=== PATIENT | female | born 1955 | race Caucasian/White ===

== ENCOUNTER 2016-12-12 10:12 | Emergency (ER) | payer SELFPAY ==
[~2016-12-12] VITALS: Ht 167.6 cm; Wt 81.0 kg
[~2016-12-12 10:12] MED LIST: NAPROSYN500 MG PO; ZPAK PO
[2016-12-12] MEDS ORDERED: CIMETIDINE400 M1 PO (10:29)
[2016-12-12] MEDS ORDERED: BENADRYL 50MG C50 MG PO (10:29)
[2016-12-12] MEDS ORDERED: PREDNISONE10 MG PO (10:29)
[2016-12-12 10:36] VITALS: BP 154/81
== END 2016-12-12 10:48 | disposition home or self-care (01) | DRG 607 ==
LOC: ED 10:12
DX: R21 Rash and other nonspecific skin eruption (principal); E11.9 Type 2 diabetes mellitus without complications

== ENCOUNTER 2017-03-30 19:46 | Emergency (ER) | payer OTHER ==
[~2017-03-30] VITALS: Ht 167.6 cm; Wt 85.4 kg
[~2017-03-30 19:46] MED LIST changes: +BENADRYL 50MG C50 MG PO; +CIMETIDINE400 M1 PO; +PREDNISONE10 MG PO
[2017-03-30 20:53] LABS: HEMATOCRIT 35.6 % (37.0-47.0); HEMOGLOBIN 12.4 g/dl (12.0-16.0); IMMATURE GRANULOCYTES 0.1 % (0.0-1.0); MEAN CELL VOLUME 93.9 fL CALC (80.0-100.0); MEAN CORPUSCULAR HGB 32.7 pG CALC (26.0-32.0); MEAN CORPUSCULAR HGB CONC 34.8 g/L CALC (32.0-36.0); NEUT# 4.79 thou/uL (2.00-7.15); RED BLOOD COUNT 3.79 mill/uL (4.20-5.60); RED CELL DISTRI WIDTH 11.4 % (11.5-15.5)
[2017-03-30 21:03] LABS: ALBUMIN 4.1 g/dL (3.2-5.0); ALKALINE PHOSPHATASE 88 u/l (38-126); ANION GAP 15 (6-22 (CALC)); BILIRUBIN, TOTAL 0.5 mg/dL (0.0-1.4); BUN 31 mg/dL (8-23); BUN/CREATININE RATIO 28 (12-20 (CALC)); CALCIUM 9.5 mg/dL (8.4-10.2); CARBON DIOXIDE 27 mmol/l (22-30); CHLORIDE 95 mmol/l (95-108); CREATININE 1.1 mg/dL (0.5-1.0); GFR 50 ML/MIN (>=60 (CALC)); GFR FOR AFR.AMER. > 60 ML/MIN (>=60 (CALC)); POTASSIUM 4.8 mmol/l (3.5-5.1); SGOT/AST 23 u/l (9-36); SGPT/ALT 36 u/l (11-66); SODIUM 132 mmol/l (137-146); TOTAL PROTEIN 7.2 g/dL (6.3-8.2)
[2017-03-30 21:06] LABS: GLUCOSE 571 mg/dL (82-115)
[2017-03-30] MEDS ORDERED: LORTAB 10-325 M1 TAB PO (23:25)
[2017-03-30] MEDS ORDERED: FLEXERIL PO (23:25)
[2017-03-30 23:40] VITALS: BP 132/74
== END 2017-03-30 23:40 | disposition home or self-care (01) | DRG 563 ==
LOC: ED 19:46
PROVIDERS: Emergency Medicine
DX: S39.012A Strain of muscle, fascia and tendon of lower back, initial encounter (principal); E11.9 Type 2 diabetes mellitus without complications; M47.816 Spondylosis without myelopathy or radiculopathy, lumbar region; X58.XXXA Exposure to other specified factors, initial encounter

== ENCOUNTER 2017-06-10 16:26 | Observation (INO) | payer OTHER ==
[~2017-06-10] VITALS: Ht 167.6 cm; Wt 87.0 kg
[~2017-06-10 16:26] MED LIST changes: +FLEXERIL PO; +LORTAB 10-325 M1 TAB PO
--- NOTE | 2017-06-10 16:39 | NUR ---
PT WHEELED HERSELF STRAIGHT BACK TO ER ROOM 14 IN HER POWER CHAIR THAT SHE USES FOR DIABETIC NEUROPATHY. PT STATES SHE HASNT BEEN TAKING HER DIABETIC MEDS x2 YEARS BC SHE DIDNT HAVE INSURANCE. WENT FOR A ROUTINE PHYSICAL TODAY AND THEY SENT HER HERE AFTER SHE SAID SHE'S HAD A LONG HX OF CHEST PAIN. DENIES SOB
[2017-06-10 16:58] LABS: HEMATOCRIT 33.1 % (37.0-47.0); HEMOGLOBIN 11.5 g/dl (12.0-16.0); IMMATURE GRANULOCYTES 0.1 % (0.0-1.0); MEAN CELL VOLUME 94.6 fL CALC (80.0-100.0); MEAN CORPUSCULAR HGB 32.9 pG CALC (26.0-32.0); MEAN CORPUSCULAR HGB CONC 34.7 g/L CALC (32.0-36.0); NEUT# 3.68 thou/uL (2.00-7.15); RED BLOOD COUNT 3.5 mill/uL (4.20-5.60); RED CELL DISTRI WIDTH 12.1 % (11.5-15.5)
[2017-06-10 17:11] LABS: ALKALINE PHOSPHATASE 115 u/l (38-126); AMYLASE 46 u/l (30-110); ANION GAP 14 (6-22 (CALC)); BILIRUBIN, TOTAL 0.7 mg/dL (0.0-1.4); BUN 29 mg/dL (8-23); BUN/CREATININE RATIO 34 (12-20 (CALC)); CALCIUM 9.5 mg/dL (8.4-10.2); CARBON DIOXIDE 26 mmol/l (22-30); CHLORIDE 102 mmol/l (95-108); CREATININE 0.9 mg/dL (0.5-1.0); GFR > 60 ML/MIN (>=60 (CALC)); GFR FOR AFR.AMER. > 60 ML/MIN (>=60 (CALC)); GLUCOSE 375 mg/dL (82-115); LIPASE 122 u/l (23-300); POTASSIUM 4.4 mmol/l (3.5-5.1); SGOT/AST 37 u/l (9-36); SGPT/ALT 39 u/l (11-66); SODIUM 138 mmol/l (137-146); TOTAL PROTEIN 7.3 g/dL (6.3-8.2)
[2017-06-10 17:25] LABS: MYOGLOBIN 26 ng/mL (0 - 62)
--- NOTE | 2017-06-10 17:38 | NUR ---
PT ARGUMENTATIVE WITH STAFF. DENIES CP AT THIS TIME. DENIES SOB. DENIES N/V/D. DENIES COUGH. PTS POWER WC PLUGGED INTO WALL. SISTER @ BEDSIDE.
--- NOTE | 2017-06-10 17:57 | NUR ---
SBAR PRINTED TO FLOOR
--- NOTE | 2017-06-10 18:17 | NUR ---
NITRO PASTE PLACED ON PTS RIGHT CHEST. PT STATES HER SUGAR "WAS LOW; ITS USUALLY AROUND 400" BUT DOESNT KNOW WHEN THE LAST TIME WAS THAT SHE CHECKED IT. PT EDUCATED ABOUT MEDS GIVEN.
--- NOTE | 2017-06-10 18:35 | NUR ---
PT GIVEN A SANDWICH & JUICE AFTER INSULIN.
--- NOTE | 2017-06-10 18:40 | NUR ---
WAITING ON ADMITTING NURSE TO CALL BACK FOR REPORT.
--- NOTE | 2017-06-10 19:08 | NUR ---
Admission Note Report Given to: SUNDAR Transported by: Wheelchair X Stretcher Transported with: X Nurse Transporter X Patent IV O2 X Engineer Assistant
[2017-06-10 19:20] VITALS: BP 176/88
--- NOTE | 2017-06-10 19:27 | NUR ---
PT DROVE SELF IN POWERED WC UP TO MSU 273 IN STABLE CONDITION. RN @ BEDSIDE.
--- NOTE | 2017-06-10 20:00 | NUR ---
I RECEIVED PATIENT FROM ER, A+O*3 NO PRESENT CHEST PAIN AT THE MOMENT, LUNGS CLEAR AT ROOM AIR, NO PRESENT ABD PAIN AT THE MOMENT AND SOFT, NO PRESENT EDEMA IN BOTH ARM AND LEG, THE IV NO PRESENT EDEMA AND FREE REDNESS AREA.
[2017-06-10 23:19] LABS: URINE BILIRUBIN - DIPSTICK NEGATIVE (NEGATIVE); URINE BLOOD DIPSTICK SMALL (NEGATIVE); URINE COLOR YELLOW; URINE GLUCOSE - DIPSTICK >=1000 mg/dL (NEGATIVE); URINE KETONE NEGATIVE (NEGATIVE); URINE LEUK ESTERASE NEGATIVE (NEGATIVE); URINE NITRITE - DIPSTICK NEGATIVE (Negative); URINE PH 5.5 (4.5-8.0); URINE PROTEIN - DIPSTICK 100 mg/dL (NEG-TRACE); URINE SPECIFIC GRAVITY 1.025; URINE UROBILINOGEN - DIPSTICK 0.2 E.U./dL (0.2)
[2017-06-10 23:20] LABS: URINE CLARITY SLIGHT CLOUDY
[2017-06-10 23:37] VITALS: BP 121/72
--- NOTE | 2017-06-11 | NUR ---
PATIENT CONTINUE IN BED, NO PRESENT CHEST PAIN AT THE MOMENT AND CONTINUE IN OBSERVATION.
[2017-06-11 00:01] LABS: URINE BACTERIA FEW hpf; URINE HYALINE CAST FEW lpf (NONE-RARE); URINE RBC 0-2 RBC/hpf (0-5); URINE SQUAMOUS EPITHELIAL CELL MODERATE EPI/hpf (0-FEW); URINE WBC 0-2 WBC/hpf (0-5)
--- NOTE | 2017-06-11 04:00 | NUR ---
PATIENT CONTINUE SLEEPING AND NO PRESENT CHEST PAIN AT THE MOMENT.
[2017-06-11 04:08] VITALS: BP 171/82
[2017-06-11 06:35] LABS: HEMATOCRIT 31.5 % (37.0-47.0); MEAN CELL VOLUME 95.7 fL CALC (80.0-100.0); MEAN CORPUSCULAR HGB 33.4 pG CALC (26.0-32.0); MEAN CORPUSCULAR HGB CONC 34.9 g/L CALC (32.0-36.0); RED BLOOD COUNT 3.29 mill/uL (4.20-5.60); RED CELL DISTRI WIDTH 12.1 % (11.5-15.5)
[2017-06-11 06:47] LABS: ANION GAP 14 (6-22 (CALC)); BUN 27 mg/dL (8-23); BUN/CREATININE RATIO 34 (12-20 (CALC)); CALCULATED LDLCHOLESTEROL 179 mg/dL (62-129 (CALC)); CARBON DIOXIDE 28 mmol/l (22-30); CHLORIDE 101 mmol/l (95-108); CHOLESTEROL HDL RATIO 4.3 (<4.4 (CALC)); CREATININE 0.8 mg/dL (0.5-1.0); GFR > 60 ML/MIN (>=60 (CALC)); GFR FOR AFR.AMER. > 60 ML/MIN (>=60 (CALC)); GLUCOSE 320 mg/dL (82-115); HDL CHOLESTEROL 65 mg/dL (>=40); POTASSIUM 4.7 mmol/l (3.5-5.1); SODIUM 138 mmol/l (137-146); TOTAL CHOLESTEROL 282 mg/dl (0-199); TOTAL TRIGLYCERIDES 190 mg/dl (30-149); VLDL CHOLESTROL 38 mg/dl (1-41 (CALC))
--- NOTE | 2017-06-11 07:30 | NUR ---
BEDSIDE REPORT RECIEVED FROM DAY SHIFT. PT RESTING IN BED WITH EYES CLOSED AND AWAKEN SPONTANEOUSLY. PT ALERT AND ORIENTED, DENIES PAIN CURRENTLY. RESP EVEN AND UNLABORED ON RA. BLOOD PRESSURE DECREASED FROM LAST DOCUMENTED VS. PLAN OF CARE DISCUSSED, PT ENCOURAGED TO VERBALIZE CONCERNS. STATES UNDERSTANDING, SAFETY MEASUES IN PLACE. CALL LIGHT SYSTEM REVIEWED AND IN REACH.
[2017-06-11 07:31] VITALS: BP 152/84
[2017-06-11 11:37] VITALS: BP 172/73
[2017-06-11 11:42] VITALS: BP 172/94
[2017-06-11 11:51] VITALS: BP 182/82
--- NOTE | 2017-06-11 11:51 | NUR ---
BLOOD SUGAR AT 1100 WAS 439. NOTIFIED DECLINED INSULIN. NEW ORDERS FOR ORAL HYPOGLYCEMICS. BP ALSO ELEVATED AT THIS TIME, RN WILL GIVE BP PRN MEDS AND REASSES.
--- NOTE | 2017-06-11 11:53 | NUR ---
HYDRALIZINE IV GIVEN AT THIS TIME. BP IS 182/82. PT GIVEN EDUCATION ON BLOOD PRESSURE MEDICATION AND SIDE EFFECTS. PT EXPLAINED OF ADDITIONAL LISINOPRIL TO BE GIVEN APPROX. 1 HOUR AFTER ADMINISTRATION. PT STATES UNDERSTANDING. ALSO, PT GIVEN INSTRUCTIONS IN REGARDS POSSIBLE SIDE EFFECTS OF FEELING DROWSY, DIZZY, OR LIGHTHEADED. PT INSTRUCTED TO USE CALL LIGHT FOR ASSISTANCE. PT VERBALIZES UNDERSTANDING.
[2017-06-11 12:25] VITALS: BP 124/66
[2017-06-11] MEDS ORDERED: ASPIRIN ADULT L81 M2 PO (13:14)
[2017-06-11] MEDS ORDERED: AMLODIPINE BESYL5 MG PO (13:14)
[2017-06-11] MEDS ORDERED: GLUCOTROL5 MG PO (13:14)
[2017-06-11] MEDS ORDERED: LIPITOR20 M1 PO (13:14)
[2017-06-11] MEDS ORDERED: JANUVIA100 MG PO (13:14)
[2017-06-11] MEDS ORDERED: LISINOPRIL20 M1 PO (13:14)
--- NOTE | 2017-06-11 14:17 | NUR ---
Discharge instructions given. Patient verbalizes understanding of same. Discharged in stable condition via Wheelchair to Home with family. All belongings sent with pt.
== END 2017-06-11 14:13 | disposition home or self-care (01) | DRG 313 ==
LOC: ED 16:26 → ED-I 17:47 → ED 18:01 → MS2 18:02
PROVIDERS: Emergency Medicine; Internal Medicine; ADMIT Internal Medicine; ATTEND Internal Medicine
DX: R07.89 Other chest pain (principal); E11.40 Type 2 diabetes mellitus with diabetic neuropathy, unspecified; F20.0 Paranoid schizophrenia; I16.0 Hypertensive urgency; I10 Essential (primary) hypertension; E11.65 Type 2 diabetes mellitus with hyperglycemia; E78.5 Hyperlipidemia, unspecified; Z91.14 Patient's other noncompliance with medication regimen
CPT/HCPCS: G0378; J1650

== ENCOUNTER 2017-09-10 15:32 | Emergency (ER) | payer OTHER ==
[~2017-09-10] VITALS: Ht 167.6 cm; Wt 91.4 kg
[~2017-09-10 15:32] MED LIST changes: +AMLODIPINE BESYL5 MG PO; +ASPIRIN ADULT L81 M2 PO; +GLUCOTROL5 MG PO; +JANUVIA100 MG PO; +LIPITOR20 M1 PO; +LISINOPRIL20 M1 PO
[2017-09-10] MEDS ORDERED: INVOKANA100 MG PO (17:14)
[2017-09-10 19:23] LABS: HEMATOCRIT 34.3 % (37.0-47.0); HEMOGLOBIN 11.4 g/dl (12.0-16.0); IMMATURE GRANULOCYTES 0.3 % (0.0-1.0); MEAN CELL VOLUME 98.3 fL CALC (80.0-100.0); MEAN CORPUSCULAR HGB 32.7 pG CALC (26.0-32.0); MEAN CORPUSCULAR HGB CONC 33.2 g/L CALC (32.0-36.0); NEUT# 4.1 thou/uL (2.00-7.15); RED BLOOD COUNT 3.49 mill/uL (4.20-5.60); RED CELL DISTRI WIDTH 11.9 % (11.5-15.5)
[2017-09-10 19:24] LABS: URINE BILIRUBIN - DIPSTICK NEGATIVE (NEGATIVE); URINE BLOOD DIPSTICK NEGATIVE (NEGATIVE); URINE COLOR YELLOW; URINE GLUCOSE - DIPSTICK >=1000 mg/dL (NEGATIVE); URINE KETONE NEGATIVE (NEGATIVE); URINE LEUK ESTERASE NEGATIVE (NEGATIVE); URINE NITRITE - DIPSTICK NEGATIVE (Negative); URINE PROTEIN - DIPSTICK 30 mg/dL (NEG-TRACE); URINE SPECIFIC GRAVITY 1.025; URINE UROBILINOGEN - DIPSTICK 0.2 E.U./dL (0.2)
[2017-09-10 19:26] LABS: BARBITURATES NEGATIVE (NEGATIVE); COCAINE NEGATIVE (NEGATIVE); METHADONE NEGATIVE (NEGATIVE); OXCYCODONE NEGATIVE (NEGATIVE); TETRAHYDROCANNABIONOL NEGATIVE (NEGATIVE); TRICYLIC ANTIDEPRESSANTS NEGATIVE (NEGATIVE)
[2017-09-10 19:58] LABS: ALKALINE PHOSPHATASE 139 u/l (38-126); ANION GAP 16 (6-22 (CALC)); BILIRUBIN, TOTAL 0.4 mg/dL (0.0-1.4); BUN 27 mg/dL (8-23); BUN/CREATININE RATIO 32 (12-20 (CALC)); CALCIUM 9.9 mg/dL (8.4-10.2); CARBON DIOXIDE 23 mmol/l (22-30); CHLORIDE 109 mmol/l (95-108); CREATININE 0.8 mg/dL (0.5-1.0); GFR > 60 ML/MIN (>=60 (CALC)); GFR FOR AFR.AMER. > 60 ML/MIN (>=60 (CALC)); GLUCOSE 174 mg/dL (82-115); POTASSIUM 4.8 mmol/l (3.5-5.1); SGOT/AST 22 u/l (9-36); SGPT/ALT 32 u/l (11-66); SODIUM 143 mmol/l (137-146); TOTAL PROTEIN 6.9 g/dL (6.3-8.2)
[2017-09-10 21:27] LABS: URINE CLARITY CLEAR
[2017-09-10 21:50] LABS: URINE SQUAMOUS EPITHELIAL CELL FEW EPI/hpf (0-FEW)
[2017-09-10 22:07] VITALS: BP 120/68
== END 2017-09-10 22:05 | disposition left against medical advice (07) | DRG 103 ==
LOC: ED 15:32
PROVIDERS: Emergency Medicine
DX: R51 Headache (principal); I10 Essential (primary) hypertension; R11.0 Nausea

== ENCOUNTER 2018-03-21 16:14 | Emergency (ER) | payer OTHER ==
[~2018-03-21] VITALS: Ht 167.6 cm; Wt 100.0 kg
[~2018-03-21 16:14] MED LIST changes: +INVOKANA100 MG PO
[2018-03-21 17:04] LABS: HEMATOCRIT 31.5 % (37.0-47.0); HEMOGLOBIN 10.5 g/dl (12.0-16.0); IMMATURE GRANULOCYTES 0.1 % (0.0-1.0); MEAN CELL VOLUME 96.3 fL CALC (80.0-100.0); MEAN CORPUSCULAR HGB 32.1 pG CALC (26.0-32.0); MEAN CORPUSCULAR HGB CONC 33.3 g/L CALC (32.0-36.0); NEUT# 4.18 thou/uL (2.00-7.15); RED BLOOD COUNT 3.27 mill/uL (4.20-5.60); RED CELL DISTRI WIDTH 11.9 % (11.5-15.5)
[2018-03-21 17:21] LABS: ALBUMIN 3.6 g/dL (3.2-5.0); ALKALINE PHOSPHATASE 114 u/l (38-126); ANION GAP 15 (6-22 (CALC)); BILIRUBIN, TOTAL 0.4 mg/dL (0.0-1.4); BUN 29 mg/dL (8-23); BUN/CREATININE RATIO 28 (12-20 (CALC)); CARBON DIOXIDE 22 mmol/l (22-30); CHLORIDE 107 mmol/l (95-108); GFR 56 ML/MIN (>=60 (CALC)); GFR FOR AFR.AMER. > 60 ML/MIN (>=60 (CALC)); POTASSIUM 3.9 mmol/l (3.5-5.1); SGOT/AST 27 u/l (9-36); SGPT/ALT 31 u/l (11-66); SODIUM 141 mmol/l (137-146); TOTAL PROTEIN 6.7 g/dL (6.3-8.2)
[2018-03-21 17:52] LABS: URINE BILIRUBIN - DIPSTICK NEGATIVE (NEGATIVE); URINE BLOOD DIPSTICK TRACE-INTACT (NEGATIVE); URINE COLOR YELLOW; URINE GLUCOSE - DIPSTICK >=1000 mg/dL (NEGATIVE); URINE KETONE NEGATIVE (NEGATIVE); URINE LEUK ESTERASE NEGATIVE (NEGATIVE); URINE NITRITE - DIPSTICK NEGATIVE (Negative); URINE PH 5.5 (4.5-8.0); URINE PROTEIN - DIPSTICK TRACE mg/dL (NEG-TRACE); URINE SPECIFIC GRAVITY 1.015; URINE UROBILINOGEN - DIPSTICK 0.2 E.U./dL (0.2)
[2018-03-21 17:54] LABS: URINE CLARITY CLEAR
[2018-03-21] MEDS ORDERED: ANTIVERT PO (18:10)
[2018-03-21 18:30] VITALS: BP 156/68
== END 2018-03-21 18:30 | disposition home or self-care (01) ==
LOC: ED 16:14
DX: R42 Dizziness and giddiness (principal); I10 Essential (primary) hypertension; E11.9 Type 2 diabetes mellitus without complications; Z79.84 Long term (current) use of oral hypoglycemic drugs

== ENCOUNTER 2018-06-01 15:29 | Emergency (ER) | payer OTHER ==
[~2018-06-01] VITALS: Ht 167.6 cm; Wt 100.0 kg
[~2018-06-01 15:29] MED LIST changes: +ANTIVERT PO
[2018-06-01 16:23] LABS: HEMATOCRIT 35.7 % (37.0-47.0); HEMOGLOBIN 11.8 g/dl (12.0-16.0); IMMATURE GRANULOCYTES 0.2 % (0.0-5.0); MEAN CELL VOLUME 98.3 fL CALC (80.0-100.0); MEAN CORPUSCULAR HGB 32.5 pG CALC (26.0-32.0); MEAN CORPUSCULAR HGB CONC 33.1 g/L CALC (32.0-36.0); NEUT# 4.46 thou/uL (2.00-7.15); RED BLOOD COUNT 3.63 mill/uL (4.20-5.60); RED CELL DISTRI WIDTH 12.2 % (11.5-15.5)
[2018-06-01 16:37] LABS: ALKALINE PHOSPHATASE 171 u/l (38-126); AMYLASE 70 u/l (30-110); ANION GAP 15 (6-22 (CALC)); BILIRUBIN, TOTAL 0.3 mg/dL (0.0-1.4); BUN 37 mg/dL (8-23); BUN/CREATININE RATIO 35 (12-20 (CALC)); CARBON DIOXIDE 26 mmol/l (22-30); CHLORIDE 100 mmol/l (95-108); CREATININE 1.1 mg/dL (0.5-1.0); GFR 50 ML/MIN (>=60 (CALC)); GFR FOR AFR.AMER. > 60 ML/MIN (>=60 (CALC)); LIPASE 216 u/l (23-300); POTASSIUM 4.3 mmol/l (3.5-5.1); SGOT/AST 36 u/l (9-36); SGPT/ALT 50 u/l (11-66); SODIUM 137 mmol/l (137-146)
[2018-06-01 16:42] LABS: ALBUMIN 4.5 g/dL (3.2-5.0); TOTAL PROTEIN 8.1 g/dL (6.3-8.2)
[2018-06-01 16:50] LABS: MYOGLOBIN 30 ng/mL (0 - 62)
[2018-06-01 18:15] VITALS: BP 168/72
== END 2018-06-01 18:15 | disposition home or self-care (01) ==
LOC: ED 15:29
PROVIDERS: Family Medicine
DX: E11.65 Type 2 diabetes mellitus with hyperglycemia (principal); I10 Essential (primary) hypertension; M54.2 Cervicalgia; M54.5 Low back pain; R10.13 Epigastric pain

== ENCOUNTER 2018-06-12 17:57 | Emergency (ER) | payer OTHER ==
[~2018-06-12] VITALS: Ht 167.6 cm; Wt 99.0 kg
[2018-06-12] MEDS ORDERED: GLIPIZIDE ER10 M1 PO (18:06)
[2018-06-12 19:49] VITALS: BP 162/70
== END 2018-06-12 19:49 | disposition home or self-care (01) ==
LOC: ED 17:57
DX: S00.83XA Contusion of other part of head, initial encounter (principal); S50.12XA Contusion of left forearm, initial encounter; I10 Essential (primary) hypertension; E11.9 Type 2 diabetes mellitus without complications; R42 Dizziness and giddiness; W18.39XA Other fall on same level, initial encounter; Y92.009 Unspecified place in unspecified non-institutional (private) residence as the place of occurrence of the external cause

== ENCOUNTER 2018-11-22 12:43 | Emergency (ER) | payer OTHER ==
[~2018-11-22] VITALS: Ht 167.6 cm; Wt 90.0 kg
[~2018-11-22 12:43] MED LIST changes: +GLIPIZIDE ER10 M1 PO
[2018-11-22 13:42] LABS: GFR > 60 ML/MIN (>=60 (CALC)); GFR FOR AFR.AMER. > 60 ML/MIN (>=60 (CALC))
[2018-11-22 13:58] LABS: HEMATOCRIT 35.6 % (37.0-47.0); HEMOGLOBIN 11.7 g/dl (12.0-16.0); IMMATURE GRANULOCYTES 0.5 % (0.0-5.0); MEAN CELL VOLUME 98.6 fL CALC (80.0-100.0); MEAN CORPUSCULAR HGB 32.4 pG CALC (26.0-32.0); MEAN CORPUSCULAR HGB CONC 32.9 g/L CALC (32.0-36.0); NEUT# 5.02 thou/uL (2.00-7.15); RED BLOOD COUNT 3.61 mill/uL (4.20-5.60); RED CELL DISTRI WIDTH 11.9 % (11.5-15.5)
[2018-11-22 14:05] LABS: INTERNATIONAL NORMALIZED RATIO 0.9 RATIO (0.7-1.3); PROTHROMBIN TIME 9.6 SECONDS (9.0-12.5)
[2018-11-22 14:08] LABS: ANION GAP 16 (6-22 (CALC)); BUN 28 mg/dL (8-23); BUN/CREATININE RATIO 30 (12-20 (CALC)); CARBON DIOXIDE 24 mmol/l (22-30); CHLORIDE 102 mmol/l (95-108); CREATININE 0.9 mg/dL (0.5-1.0); GFR > 60 ML/MIN (>=60 (CALC)); GFR FOR AFR.AMER. > 60 ML/MIN (>=60 (CALC)); POTASSIUM 4.6 mmol/l (3.5-5.1); SODIUM 138 mmol/l (137-146)
[2018-11-22 15:27] VITALS: BP 161/73
== END 2018-11-22 15:35 | disposition home or self-care (01) ==
LOC: ED 12:43
PROVIDERS: Family Medicine
DX: H54.7 Unspecified visual loss (principal); I10 Essential (primary) hypertension; E11.9 Type 2 diabetes mellitus without complications; R42 Dizziness and giddiness; R51 Headache
CPT/HCPCS: Q9967

== ENCOUNTER 2019-07-07 20:30 | Emergency (ER) | payer OTHER ==
[~2019-07-07] VITALS: Ht 167.6 cm; Wt 92.2 kg
[~2019-07-07 20:30] MED LIST changes: +IBUPROFEN600 MG PO; +ORPHENADRINE100 MG PO
[2019-07-07 21:09] LABS: HEMATOCRIT 34.1 % (37.0-47.0); HEMOGLOBIN 11.2 g/dl (12.0-16.0); IMMATURE GRANULOCYTES 0.3 % (0.0-5.0); MEAN CORPUSCULAR HGB 32.2 pG CALC (26.0-32.0); MEAN CORPUSCULAR HGB CONC 32.8 g/L CALC (32.0-36.0); NEUT# 4.71 thou/uL (2.00-7.15); RED BLOOD COUNT 3.48 mill/uL (4.20-5.60); RED CELL DISTRI WIDTH 12.2 % (11.5-15.5)
[2019-07-07 21:21] LABS: ALBUMIN 3.6 g/dL (3.2-5.0); ALKALINE PHOSPHATASE 104 u/l (38-126); BUN 26 mg/dL (8-23); BUN/CREATININE RATIO 27 (12-20 (CALC)); CHLORIDE 108 mmol/l (95-108); GFR 56 ML/MIN (>=60 (CALC)); GFR FOR AFR.AMER. > 60 ML/MIN (>=60 (CALC)); POTASSIUM 4.3 mmol/l (3.5-5.1); SGOT/AST 22 u/l (9-36); SODIUM 140 mmol/l (137-146); TOTAL PROTEIN 6.8 g/dL (6.3-8.2)
[2019-07-07 21:29] LABS: ANION GAP 18 (6-22 (CALC)); BILIRUBIN, TOTAL 0.7 mg/dL (0.0-1.4); CARBON DIOXIDE 18 mmol/l (22-30)
[2019-07-07 21:33] LABS: MYOGLOBIN 78 ng/mL (0 - 62)
[2019-07-07 21:36] LABS: URINE BLOOD DIPSTICK SMALL (NEGATIVE); URINE COLOR YELLOW; URINE GLUCOSE - DIPSTICK >=1000 mg/dL (NEGATIVE); URINE KETONE TRACE mg/dL (NEGATIVE); URINE LEUK ESTERASE NEGATIVE (NEGATIVE); URINE NITRITE - DIPSTICK NEGATIVE (Negative); URINE PROTEIN - DIPSTICK 100 mg/dL (NEG-TRACE); URINE SPECIFIC GRAVITY 1.025; URINE UROBILINOGEN - DIPSTICK 0.2 E.U./dL (0.2)
[2019-07-07 21:39] LABS: BARBITURATES NEGATIVE (NEGATIVE); COCAINE NEGATIVE (NEGATIVE); METHADONE NEGATIVE (NEGATIVE); OXCYCODONE NEGATIVE (NEGATIVE); TETRAHYDROCANNABIONOL NEGATIVE (NEGATIVE); TRICYLIC ANTIDEPRESSANTS NEGATIVE (NEGATIVE); URINE BILIRUBIN - DIPSTICK SMALL (NEGATIVE)
[2019-07-07 21:43] LABS: URINE SQUAMOUS EPITHELIAL CELL FEW EPI/hpf (0-FEW)
[2019-07-07 21:59] LABS: URINE YEAST FEW hpf
[2019-07-07] MEDS ORDERED: ANTIVERT PO (22:05)
[2019-07-07 22:15] VITALS: BP 171/83
== END 2019-07-07 22:15 | disposition home or self-care (01) ==
LOC: ED 20:30
PROVIDERS: Family Medicine
DX: R42 Dizziness and giddiness (principal); E86.0 Dehydration; E11.9 Type 2 diabetes mellitus without complications; I10 Essential (primary) hypertension; S80.212A Abrasion, left knee, initial encounter; S80.211A Abrasion, right knee, initial encounter; X58.XXXA Exposure to other specified factors, initial encounter

== ENCOUNTER 2019-08-30 17:09 | Observation (INO) | payer OTHER ==
[~2019-08-30] VITALS: Ht 167.6 cm; Wt 85.2 kg
--- NOTE | 2019-08-30 17:17 | NUR ---
PT TO ROOM VIA WC
[2019-08-30] MEDS ORDERED: JANUVIA100 MG PO (17:19)
[2019-08-30] MEDS ORDERED: INVOKANA100 MG (17:20)
--- NOTE | 2019-08-30 17:43 | NUR ---
DR TEJADA AT BEDSIDE FOR RECTAL EXAM
[2019-08-30 17:45] LABS: HEMATOCRIT 38.3 % (37.0-47.0); HEMOGLOBIN 12.4 g/dl (12.0-16.0); IMMATURE GRANULOCYTES 0.1 % (0.0-5.0); MEAN CELL VOLUME 97.7 fL CALC (80.0-100.0); MEAN CORPUSCULAR HGB 31.6 pG CALC (26.0-32.0); MEAN CORPUSCULAR HGB CONC 32.4 g/L CALC (32.0-36.0); NEUT# 3.31 thou/uL (2.00-7.15); RED BLOOD COUNT 3.92 mill/uL (4.20-5.60); RED CELL DISTRI WIDTH 12.7 % (11.5-15.5)
--- NOTE | 2019-08-30 18:30 | NUR ---
PT RETURNED FROM RADIOLOGY; MONITORING DEVICES REAPPLIED; VSS; WILL CONTINUE TO MONITOR
[2019-08-30 18:53] LABS: ANION GAP 17 (6-22 (CALC)); BUN 20 mg/dL (8-23); BUN/CREATININE RATIO 24 (12-20 (CALC)); CARBON DIOXIDE 20 mmol/l (22-30); CHLORIDE 107 mmol/l (95-108); CREATININE 0.8 mg/dL (0.5-1.0); GFR > 60 ML/MIN (>=60 (CALC)); GFR FOR AFR.AMER. > 60 ML/MIN (>=60 (CALC)); POTASSIUM 4.2 mmol/l (3.5-5.1); SODIUM 141 mmol/l (137-146)
--- NOTE | 2019-08-30 18:56 | NUR ---
REPORT GIVEN TO SIERRA, RN
--- NOTE | 2019-08-30 19:13 | NUR ---
W/P/D SKIN DENIES PAIN OF ANY ORIGIN.SR WITHOUT ECTOPY.WARM BLANKETS APPLIED
--- NOTE | 2019-08-30 19:44 | NUR ---
SBAR PRINTED TO FLOOR
--- NOTE | 2019-08-30 19:46 | NUR ---
REQUEST FOR BED/OBS/TELE CALLED TO [facility] SPOKE W/VLADISLAV
--- NOTE | 2019-08-30 20:30 | NUR ---
PHONE REPORT TO NURSE PENA ON MS
--- NOTE | 2019-08-30 20:36 | NUR ---
PT TRANSPORTED TO 282 MS2 IN STABLE CONDITION
[2019-08-30 20:40] VITALS: BP 169/77
--- NOTE | 2019-08-30 20:40 | NUR ---
PT ARRIVED TO THE FLOOR VIA STRETCHER ACCOMPANIED BY ED NURSE. V/S ASSESSED, PT WEIGHTED ON STANDING SCALE AND ASSISTED TO BED. PT REPORTS BEING DIZZY AND IS UNSTEADY UPON AMBULATION. ON REPORT, SOCK AND STOCKING IRONER QUESTIONED TREATING ELEVATED BP, ED NURSE REPORTS THAT ED PHYSICIAN IS ALLOWING BP TO LOWER ON OWN AT THIS TIME. WILL MONITOR CLOSELY. PT DENIES PAIN N/V AT THIS TIME.
--- NOTE | 2019-08-30 22:25 | NUR ---
PT ASSESSMENT COMPLETED AT THIS TIME. NO S/O DISTRESS NOTED. PT REPORTS FEELING "SLEEPY FROM MEDICINE." REQUEST FOR MORE FOOD/SNACK PROVIDED. PT HAS ALREADY BEEN PROVIDED SANDWICH AND CRACKERS W/JUICE. PT DENIES ANY OTHER NEEDS AT THIS TIME. CALL LIGHT IS AT SIDE, LIGHTING IN ROOM ADJUSTED FOR PT COMFORT.
[2019-08-31] VITALS: BP 134/58
--- NOTE | 2019-08-31 01:35 | NUR ---
PT SLEEPING, DID NOT AWAKE TO MY ENTERING ROOM. NO S/O DISTRESS NOTED. CALL LIGHT AT SIDE.
[2019-08-31 03:50] VITALS: BP 156/76
--- NOTE | 2019-08-31 03:55 | NUR ---
PT SLEEPING, NO S/O DISTRESS NOTED. CALL LIGHT W/IN REACH
--- NOTE | 2019-08-31 05:58 | NUR ---
PT SLEEPING AT THIS TIME. NO S/O DISTRESS NOTED. CALL LIGHT W/IN REACH.
[2019-08-31 06:17] LABS: CHOLESTEROL HDL RATIO 3.7 (<4.4 (CALC)); MAGNESIUM 2.2 mg/dL (1.6-2.3)
[2019-08-31 07:28] VITALS: BP 138/72
--- NOTE | 2019-08-31 08:00 | NUR ---
PT SEEN AT REST IN THE BED, STATES THAT SHE JUST WANTS TO SLEEP. ASSESSMENT IS NEGATIVE LUNGS ARE CLEAR, SKIN INTACT, ABDOMEN SOFT NONTENDER. NO COMPLAINT OF CHEST PAIN OR SHORTNESS OF BREATH.
[2019-08-31 10:35] VITALS: BP 117/61
--- NOTE | 2019-08-31 12:00 | NUR ---
CALL RECEIVED FROM PT'S SISTER IN LAW, MUCH INFORMATION GIVEN PER PT'S SCHIZOPHRENIA AND ABBERANT BEHAVIOR, UNABLE TO BE CARED FOR AT HER HOME ANYMORE. THIS INFORMATION WAS PROVIDED TO CASE MGMT AND RADIO TIME SALES SUPERVISOR. PT HERSELF RESTS IN THE BED, NO DISTRESS, NO COMPLAINTS.
[2019-08-31 15:20] VITALS: BP 117/58
--- NOTE | 2019-08-31 16:00 | NUR ---
PT SEEN BY DR HYDE, TO DISCHARGE TODAY. PT TO FOLLOW WITH GI VIA HER PRIMARY DR PARKER.
[2019-08-31] MEDS ORDERED: FERR SULFATE325 MG PO (16:28)
--- NOTE | 2019-08-31 17:15 | NUR ---
PT HAS BEEN CLEARED FOR DISCHARGE TO HOME. SHAVONNE CRONIN, SISTER IN LAW, WAS CALLED BUT NO ANSWER, SO MESSAGE LEFT ON ANSWERING MACHINE. PT VERBALIZES UNDERSTANDING OF DC INSTRUCTIONS. PT WANTS TO WAIT UNTIL AFTER SUPPER TO LEAVE. NO FURTHER COMPLAINTS OF DIZZINESS, CHEST PAIN, OR BLOOD IN STOOLS.
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
== END 2019-08-31 18:46 | disposition home or self-care (01) ==
LOC: ED 17:09 → ED-I 18:02 → ED 19:32 → MS2 19:33
PROVIDERS: Family Medicine; ADMIT Internal Medicine; ATTEND Internal Medicine
DX: R07.2 Precordial pain (principal); R42 Dizziness and giddiness; R19.7 Diarrhea, unspecified; D64.9 Anemia, unspecified; I10 Essential (primary) hypertension; E11.9 Type 2 diabetes mellitus without complications; B19.20 Unspecified viral hepatitis C without hepatic coma; E78.5 Hyperlipidemia, unspecified; F20.0 Paranoid schizophrenia; Z23 Encounter for immunization; Z79.84 Long term (current) use of oral hypoglycemic drugs; Z91.14 Patient's other noncompliance with medication regimen
CPT/HCPCS: G0378